=== PATIENT | male | born 1965 | race Caucasian/White ===

== ENCOUNTER 2018-12-23 11:48 | Emergency (ER) | payer BC ==
[~2018-12-23] VITALS: Ht 182.9 cm; Wt 102.1 kg
[2018-12-23] MEDS ORDERED: SODIUM CHLORIDE 0.9% 1000ML 1,000 ML IV STA (12:07)
[2018-12-23] MEDS ORDERED: ONDANSETRON HCL INJ 2MG/ML 2ML 2 MG/ML VIAL IV STA (12:07)
[2018-12-23] MEDS ORDERED: CEFTRIAXONE SOD 1 GM/NS 50 ML 50 ML IV ONE (12:30)
[2018-12-23 12:37] LABS: BASOPHILS % 0.1 % (0.0-1.0); EOSINOPHILS # (AUTO) 0.1 (0.0-0.4); EOSINOPHILS % 0.7 % (0.0-6.0); HEMATOCRIT 38.1 % (38.2-49.6); HEMOGLOBIN 12.9 g/dL (14.0-18.0); LYMPHOCYTES # (AUTO) 1.8 (1.0-3.2); LYMPHOCYTES % 22.9 % (18.0-39.1); MEAN CORPUSCULAR HEMOGLOBIN 29.1 pg (28-32); MEAN CORPUSCULAR HGB CONC 33.9 g/dL (31-35); MONOCYTES # (AUTO) 0.5 (0.2-0.8); NEUTROPHILS # (AUTO) 5.4 (2.1-6.9); NEUTROPHILS % 69.9 % (38.7-80.0); PLATELET COUNT 70 x10e3/uL (140-360); RED BLOOD COUNT 4.43 x10e6/uL (4.3-5.7)
[2018-12-23 12:42] LABS: INR 1.12; PROTHROMBIN TIME 14.9 seconds (11.9-14.5)
[2018-12-23 12:43] LABS: PARTIAL THROMBOPLASTIN TIME 33.2 seconds (23.8-35.5)
[2018-12-23 12:49] LABS: ALANINE AMINOTRANSFERASE 41 IU/L (0-55); ALBUMIN 3.7 g/dL (3.5-5.0); ALBUMIN/GLOBULIN RATIO 0.8 (0.8-2.0); ALKALINE PHOSPHATASE 98 IU/L (40-150); ANION GAP 12.7 mmol/L (8-16); BLOOD UREA NITROGEN 12 mg/dL (7-26); BUN/CREATININE RATIO 14 (6-25); CALCIUM 9.7 mg/dL (8.4-10.2); CARBON DIOXIDE 21 mmol/L (22-29); CHLORIDE 105 mmol/L (98-107); CREATINE KINASE 53 IU/L (30-200); CREATININE, SERUM 0.84 mg/dL (0.72-1.25); EST GLOMERULAR FILTRATION RATE > 60 ML/MIN (60-); GLUCOSE 99 mg/dL (74-118); POTASSIUM 3.7 mmol/L (3.5-5.1); SODIUM 135 mmol/L (136-145)
--- NOTE | 2018-12-23 13:16 | Diagnostic Imaging Report ---
Clinical History: ^ERMD ORDER ^[id number] ^1240 ^Y Comparison Study: None Findings: The heart and lungs are within normal limits. The pleural spaces are clear. There is no pneumothorax. No significant bony or soft tissue abnormalities are seen. Impression: No active cardiopulmonary disease. Signed by: Franklyn Chapa MD on 12/23/2018 1:13 PM
[2018-12-23] MEDS ORDERED: ACETAMINOPHEN 1000 MG/100 ML IV ONE (14:00)
[2018-12-23 15:07] LABS: BILIRUBIN,URINE NEGATIVE (NEGATIVE); CLARITY,URINE SL CLOUDY (CLEAR); COLOR,URINE STRAW (YELLOW); KETONES,URINE TRACE (NEGATIVE); LEUKOCYTE ESTERASE ,URINE NEGATIVE (NEGATIVE); NITRITE,URINE NEGATIVE (NEGATIVE); PROTEIN,URINE DIPSTICK NEGATIVE (NEGATIVE); URINE UROBILINOGEN 0.2 mg/dL (0.2 - 1)
[2018-12-23 15:20] LABS: AMORPHOUS SEDIMENT,URINE MODERATE (FEW)
[2018-12-23 15:21] LABS: BACTERIA,URINE FEW /HPF; MUCUS,URINE FEW (RARE)
[2018-12-23] MEDS ORDERED: IBUPROFEN 600 MG TAB PO STA (15:40)
[2018-12-23] MEDS ORDERED: IBUPROFEN 400 MG TAB PO ONE (15:45)
== END 2018-12-23 16:08 | disposition home or self-care (01) ==
LOC: ER 11:48
DX: R50.9 Fever, unspecified (principal); J11.1 Influenza due to unidentified influenza virus with other respiratory manifestations
CPT/HCPCS: 36415; 71045; 80053; 81001; 82550; 82553; 83605; 84484; 85025; 85610; 85730; 87040; 87086; 87400; 99284; J0131; J0696; J2405; J7030